=== PATIENT | female | born 1945 | race Caucasian/White ===

== ENCOUNTER 2018-07-03 07:53 | Emergency (ER) | payer MEDICARE ==
[~2018-07-03] VITALS: Ht 162.6 cm; Wt 54.0 kg
[~2018-07-03 07:53] MED LIST: ALBU8.5H8 INH; ASPI-1153 PO; DILT240C54 PO; FLUT1DIS3 INH; HYDR-4100 PO; HYDR25TA4 PO; LORA1TAB PO; MONT10TA22; POTA10CA68 PO; SENNS PO; SERT50TA12 PO; SIMV10TA2 PO; SYN50 PO; WARF5TAB2 PO
[2018-07-03 08:00] VITALS: BP_SYST 111
[2018-07-03 09:04] LABS: ANION GAP 4 (5-15); CHLORIDE 96 mmol/L (98-107); CREATININE 0.87 mg/dL (0.55-1.30); GLUCOSE 92 mg/dL (70-99); SODIUM SERUM 135 mmol/L (136-145); UREA NITROGEN, BLOOD 16 mg/dL (8-21)
[2018-07-03 09:06] LABS: INR 2.1 (0.8-1.2); PROTHROMBIN TIME 21.9 SECS (9.5-12.5)
[2018-07-03] MEDS ORDERED: POTASSIUM CHLORIDE 20 MEQ TAB.PRT.SR PO ONE (09:15)
[2018-07-03 09:19] LABS: ALANINE AMINOTRANSFERASE 24 U/L (12-78); ALBUMIN 2.9 g/dL (3.4-4.8); ASPARTATE AMINOTRANSFERASE 19 U/L (10-37); FREE T4 (FREE THYROXINE) 0.8 ng/dL (0.6-1.6); TOTAL BILIRUBIN 0.2 mg/dL (0.0-1.0)
[2018-07-03 09:22] LABS: ALCOHOL, BLOOD < 3 mg/dL (<10); POTASSIUM 2.8 mmol/L (3.5-5.1)
[2018-07-03 09:41] LABS: BILIRUBIN,URINE NEGATIVE (NEGATIVE); BLOOD, URINE NEGATIVE (NEGATIVE); CLARITY/URINE CLEAR (CLEAR); COLOR,URINE YELLOW (YELLOW); GLUCOSE,URINE NEGATIVE (NEGATIVE); KETONES,URINE NEGATIVE (NEGATIVE); LEUKOCYTE ESTERASE ,URINE NEGATIVE (NEGATIVE); NITRITE, URINE NEGATIVE (NEGATIVE); PROTEIN URINE NEGATIVE (NEGATIVE); UROBILINOGEN,URINE 0.2 (0.2-1.0)
[2018-07-03 10:00] VITALS: BP_SYST 110
[2018-07-03 14:09] LABS: HEMATOCRIT 30.7 % (36-48); HEMOGLOBIN 9.9 g/dL (12.0-16.0); MEAN CORPUSCULAR VOLUME 74 fL (79.0-98.0); RED BLOOD CELL COUNT(AUTO) 4.14 MIL/uL (4.2-6.2); WHITE BLOOD COUNT (AUTO) 9.4 K/uL (4.8-10.8)
[2018-07-03 14:10] LABS: BASOPHILS % (AUTO) 0.9 % (0.0-2.0); EOSINOPHILS # (AUTO) 0.5 K/uL (0.0-0.4); EOSINOPHILS % (AUTO) 5.7 % (0.0-4.0); LYMPHOCYTES % (AUTO) 21.6 % (20.5-51.5); MEAN CORPUSCULAR HEMOGLOBIN 24 pg (27-31); MEAN CORPUSCULAR HGB CONC 32 % (32-36); MONOCYTES # (AUTO) 1.2 K/uL (0.0-1.0); NEUTROPHILS # (AUTO) 5.6 K/uL (1.8-7.7); NEUTROPHILS % (AUTO) 58.8 % (40.0-70.0); PLATELET COUNT (AUTO) 366 K/uL (130-430)
[2018-07-03 14:11] LABS: BASOPHILS # (AUTO) 0.1 K/uL (0.0-0.2)
== END 2018-07-03 10:00 | disposition home or self-care (01) ==
LOC: SED 07:53
DX: S09.90XA Unspecified injury of head, initial encounter (principal); F41.9 Anxiety disorder, unspecified; I10 Essential (primary) hypertension; Z86.79 Personal history of other diseases of the circulatory system; Z88.0 Allergy status to penicillin; Z79.82 Long term (current) use of aspirin; Z79.899 Other long term (current) drug therapy; W22.8XXA Striking against or struck by other objects, initial encounter; Y93.89 Activity, other specified; Y92.89 Other specified places as the place of occurrence of the external cause; Y99.8 Other external cause status
CPT/HCPCS: 36415; 70450; 71045; 74018; 80053; 81003; 83605; 83880; 84439; 84484; 85025; 85610; 87040; 93005; 99285; G0482